=== PATIENT | male | born 1970 | race Caucasian/White ===

== ENCOUNTER 2019-11-14 21:24 | Inpatient (IN) | payer SELFPAY ==
[~2019-11-14] VITALS: Ht 175.3 cm; Wt 82.1 kg
--- NOTE | 2019-11-14 21:54 | NUR ---
PT PLACED IN C COLLAR AND TAKEN TO CT
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
[2019-11-14 22:34] LABS: BASOPHILS # (AUTO) 0.04 x10^3/uL (0-0.1); BASOPHILS % (AUTO) 1 % (0-1); EOSINOPHILS # (AUTO) 0.07 x10^3/uL (0-0.4); EOSINOPHILS % (AUTO) 1 % (1-7); LYMPHOCYTES # (AUTO) 2.04 x10^3/uL (1-3.4); LYMPHOCYTES % (AUTO) 37 % (22-44); MD NO; MEAN CORPUSCULAR HEMOGLOBIN 32.4 pg (27.5-34.5); MEAN CORPUSCULAR HGB CONC 33.6 g/dL (33.2-36.2); MEAN CORPUSCULAR VOLUME 96.3 fL (81-97); MEAN PLATELET VOLUME 7.5 fL (7.4-10.4); MONOCYTES # (AUTO) 0.81 x10^3/uL (0.2-0.8); MONOCYTES % (AUTO) 15 % (2-9); NEUTROPHILS # (AUTO) 2.59 x10^3/uL (1.8-6.8); NEUTROPHILS % (AUTO) 47 % (42-75); PLATELET COUNT 232 x10^3/uL (130-400); RED BLOOD COUNT 4.29 x10^6/uL (4.38-5.82); RED CELL DISTRIBUTION WIDTH 13.6 % (9.4-14.8)
[2019-11-14] MEDS ORDERED: METF500T17 PO (22:36)
[2019-11-14 22:48] LABS: ALBUMIN 2.8 g/dL (3.4-5.0); CALCIUM 8.2 mg/dL (8.5-10.1); CHLORIDE 104 mmol/L (98-107); CREATININE 1.16 mg/dL (0.7-1.3)
[2019-11-14 22:57] LABS: ANION GAP 5 mmol/L (5-15)
[2019-11-14 23:03] LABS: ALANINE AMINOTRANSFERASE 96 U/L (12-78); ALKALINE PHOSPHATASE 71 U/L (45-117); BILIRUBIN,TOTAL 0.3 mg/dL (0.2-1.0); TOTAL PROTEIN 6.9 g/dL (6.4-8.2)
--- NOTE | 2019-11-14 23:56 | NUR ---
pt resting with family at bedside. Vss. Waiting for xrays.
--- NOTE | 2019-11-15 01:13 | NUR ---
Pt to be admitted. report to Minor VELARDE. pt changed into gown.
[2019-11-15] MEDS ORDERED: DIPH,PERTUSS(ACELL),TET VAC/PF 0.5 ML IM-VACC ONE ×2 (01:30→01:52)
--- NOTE | 2019-11-15 01:59 | NUR ---
BREAK RN: FAMILY AT BEDSIDE. PT RESTING WITH EYES CLOSED. REGULAR RESP. CALL LIGHTIN PLACE. WILL CONTINUE TO MONITOR WHILE PRIMARY RN IS ON BREAK.
[2019-11-15] MEDS ORDERED: CEFAZOLIN 1,000 MG IM ONE (02:00)
[2019-11-15] MEDS ORDERED: SODIUM CHLORIDE FLUSH 10ML SYR IVF ONE (02:00)
--- NOTE | 2019-11-15 02:04 | NUR ---
REPORT GIVEN TO PRACHI HOLLINGSWORTH
[2019-11-15] MEDS ORDERED: CEFAZOLIN PMX 1GM/50ML 50 ML IV ONE (03:00)
[2019-11-15] MEDS ORDERED: CEFAZOLIN PMX 1GM/50ML 50 ML ONE (03:44)
--- NOTE | 2019-11-15 03:56 | NUR ---
REPORT OF PT TO PRACHI JACOBSEN. ALL QUESTIONS ANSWERED. PT MEDICATED PER MAR AT THIS TIME.
[2019-11-15 04:00] VITALS: BP 94/56
[2019-11-15] MEDS ORDERED: ONDANSETRON 2MG/ML, 2ML IVPush PRN (05:30)
[2019-11-15] MEDS: CEFAZOLIN PMX 1GM/50ML 50 ML IV SCH ×2 (05:49→14:17)
[2019-11-15] MEDS: POTASSIUM CHLORIDE 20 MEQ, MAGNESIUM SULFATE 2 GM, THIAMINE 200 MG, MVI ADULT 10 ML, FO... IV SCH ×2 (05:49→16:07)
[2019-11-15 06:45] VITALS: BP 106/66
[2019-11-15] MEDS: INSULIN LISPRO 100 UNITS/ML, PEN SQ-INSULIN SCH ×2 (07:00→12:49)
[2019-11-15 07:03] LABS: MICROSCOPIC NOT IND
[2019-11-15 07:16] LABS: AMPHETAMINE SCREEN, URINE Positive (Negative); BARBITURATE SCREEN, URINE Negative (Negative); BENZODIAZEPINE SCREEN, URINE Positive (Negative); CANNABINOID SCREEN, URINE Positive (Negative); COCAINE SCREEN, URINE Negative (Negative); METHADONE SCREEN, URINE Negative (Negative); OPIATE SCREEN, URINE Positive (Negative)
[2019-11-15 12:30] VITALS: BP 117/71
[2019-11-15] MEDS ORDERED: ACETAMINOPHEN 325 MG TABLET PO PRN (13:00)
== END 2019-11-15 16:48 | disposition left against medical advice (07) | DRG 89 ==
LOC: ED 11-15 01:20 → EDIP 11-15 02:51 → 4NE 11-15 04:00
PROVIDERS: ADMIT Student in an Organized Health Care Education/Training Program; ATTEND Internal Medicine
PROC: 0T9B70Z Drainage of Bladder with Drainage Device, Via Natural or Artificial Opening (ICD-10-PCS; principal; 2019-11-15)
DX: S06.0X0A Concussion without loss of consciousness, initial encounter (principal); G93.40 Encephalopathy, unspecified; B19.10 Unspecified viral hepatitis B without hepatic coma; S61.411A Laceration without foreign body of right hand, initial encounter; Y09 Assault by unspecified means; S01.01XA Laceration without foreign body of scalp, initial encounter; F12.90 Cannabis use, unspecified, uncomplicated; S61.431A Puncture wound without foreign body of right hand, initial encounter; Z53.21 Procedure and treatment not carried out due to patient leaving prior to being seen by health care provider; F17.210 Nicotine dependence, cigarettes, uncomplicated; E11.65 Type 2 diabetes mellitus with hyperglycemia; R74.0 Nonspecific elevation of levels of transaminase and lactic acid dehydrogenase [LDH]; Z80.3 Family history of malignant neoplasm of breast; Y93.89 Activity, other specified; Y92.89 Other specified places as the place of occurrence of the external cause; Y99.8 Other external cause status; Z23 Encounter for immunization
CPT/HCPCS: 36415; 72072; 72110; 73130; J7042; 70450; 70486; 72125; 80053; 80307; 81003; 82140; 82550; 82962; 83036; 84443; 85025; 90715; G0378; J0690; J3411; J3475; J3480

== ENCOUNTER 2020-06-20 16:35 | Emergency (ER) | payer SELFPAY ==
[~2020-06-20] VITALS: Ht 175.3 cm; Wt 75.2 kg
[~2020-06-20 16:35] MED LIST: METF500T17 PO
[2020-06-20] MEDS ORDERED: MORPHINE SULFATE 4 MG/ML, 1ML IVPush PRN (17:30)
[2020-06-20] MEDS ORDERED: SODIUM CHLORIDE 0.9% 1,000ML IVBOLUS ONE (17:30)
[2020-06-20] MEDS ORDERED: SODIUM CHLORIDE FLUSH 10ML SYR IVF ONE (17:30)
[2020-06-20] MEDS ORDERED: ONDANSETRON 2MG/ML, 2ML IVPush ONE (17:30)
[2020-06-20 17:33] LABS: BASOPHILS # (AUTO) 0.01 x10^3/uL (0-0.1); BASOPHILS % (AUTO) 0 % (0-1); EOSINOPHILS # (AUTO) 0.05 x10^3/uL (0-0.4); EOSINOPHILS % (AUTO) 1 % (1-7); LYMPHOCYTES % (AUTO) 40 % (22-44); MD NO; MEAN CORPUSCULAR HEMOGLOBIN 31.5 pg (27.5-34.5); MEAN CORPUSCULAR HGB CONC 33.2 g/dL (33.2-36.2); MEAN CORPUSCULAR VOLUME 94.7 fL (81-97); MEAN PLATELET VOLUME 7.6 fL (7.4-10.4); MONOCYTES # (AUTO) 0.71 x10^3/uL (0.2-0.8); MONOCYTES % (AUTO) 13 % (2-9); NEUTROPHILS # (AUTO) 2.47 x10^3/uL (1.8-6.8); NEUTROPHILS % (AUTO) 45 % (42-75); PLATELET COUNT 206 x10^3/uL (130-400); RED BLOOD COUNT 5.25 x10^6/uL (4.38-5.82); RED CELL DISTRIBUTION WIDTH 13.3 % (9.4-14.8)
[2020-06-20] MEDS ORDERED: MORPHINE SULFATE 4 MG/ML, 1ML ONE (17:41)
[2020-06-20] MEDS ORDERED: ONDANSETRON 2MG/ML, 2ML ONE (17:41)
[2020-06-20 17:42] LABS: ALANINE AMINOTRANSFERASE 94 U/L (12-78); ALBUMIN 3.2 g/dL (3.4-5.0); ANION GAP 6 mmol/L (5-15); CALCIUM 8.9 mg/dL (8.5-10.1); CHLORIDE 106 mmol/L (98-107); CREATININE 0.87 mg/dL (0.7-1.3)
[2020-06-20 17:44] LABS: ALKALINE PHOSPHATASE 79 U/L (45-117); BILIRUBIN,TOTAL 0.5 mg/dL (0.2-1.0)
--- NOTE | 2020-06-20 18:00 | NUR ---
PT LAYING ON GURNEY MOSTLY DOZING, RESPONDS APPROP TO STAFF, NAD AT REST & NO DIAPHORESIS NOTED, COMFORT MEASURES PROVIDED, CALL LIGHT WITHIN REACH.
--- NOTE | 2020-06-20 18:10 | NUR ---
HOLD UA COLLECTION AT THIS TIME- PER DEEL JONES.
--- NOTE | 2020-06-20 18:52 | NUR ---
REPORT GIVEN TO CHRISTINE
--- NOTE | 2020-06-20 19:05 | NUR ---
CAITLIN BLAS RECIEVED AND APPLIED TO PT. PT PROVIDED EDUCATION ON REASON FOR ITS USE AND HOW TO PUT IT ON.
[2020-06-20 19:19] VITALS: BP 114/64
== END 2020-06-20 19:21 | disposition home or self-care (01) ==
LOC: ED 18:13
DX: K40.91 Unilateral inguinal hernia, without obstruction or gangrene, recurrent (principal); R10.31 Right lower quadrant pain; E11.9 Type 2 diabetes mellitus without complications; F17.200 Nicotine dependence, unspecified, uncomplicated
CPT/HCPCS: 36415; 80053; 85025; 93005; 96374; 96375; 99284; J2270; J2405; J7030

== ENCOUNTER 2020-06-24 21:23 | Emergency (ER) | payer MEDICAID, OTHER ==
[~2020-06-24] VITALS: Ht 175.3 cm; Wt 74.8 kg
[2020-06-25] MEDS ORDERED: ONDANSETRON 2MG/ML, 2ML ONE (00:09)
[2020-06-25] MEDS ORDERED: HYDROmorphone 1 MG/ML, 1ML INJ ONE (00:09)
[2020-06-25] MEDS ORDERED: SODIUM CHLORIDE FLUSH 10ML SYR IVF ONE (00:30)
[2020-06-25] MEDS ORDERED: ONDANSETRON 2MG/ML, 2ML IVPush ONE (00:30)
[2020-06-25] MEDS ORDERED: HYDROmorphone 2 MG/ML, 1ML IVPush PRN (00:30)
--- NOTE | 2020-06-25 00:48 | NUR ---
LATE ENTRY DUE TO PATIENT CARE: THIS IS A 49 YO MALE COMING IN FOR "MY HERNIA POPPED OUT AGAIN". PATIENT DIAGNOSED WITH INGUINAL HERNIA A FEW WEEKS AGO, HAS NOT HAD SURGICAL CONSULT. IT "POPPED" BACK OUT TODAY, NOTICABLE BULGE NOTED TO RIGHT INGUINAL AREA. A&OX4, MODERATE DISTRESS NOTED, PATIENT APPEARS VERY UNCOMFORTABLE. MONITORING IN PLACE, VSS, PIV PLACED IN RIGHT HAND. MEDICATED PER EMAR. TOLERATED WELL.
[2020-06-25 00:56] LABS: ALBUMIN 3.3 g/dL (3.4-5.0); ANION GAP 7 mmol/L (5-15); CALCIUM 9.2 mg/dL (8.5-10.1); CHLORIDE 102 mmol/L (98-107); CREATININE 1.03 mg/dL (0.7-1.3)
--- NOTE | 2020-06-25 01:03 | NUR ---
PATIENT SEEN HERE May FOR INITIAL HERNIA DX, DISCHARGED WITH ABD BINDER.
[2020-06-25 01:47] VITALS: BP 133/80
[2020-06-25 01:59] LABS: BASOPHILS # (AUTO) 0.02 x10^3/uL (0-0.1); BASOPHILS % (AUTO) 0 % (0-1); EOSINOPHILS # (AUTO) 0.04 x10^3/uL (0-0.4); EOSINOPHILS % (AUTO) 1 % (1-7); LYMPHOCYTES # (AUTO) 2.55 x10^3/uL (1-3.4); LYMPHOCYTES % (AUTO) 37 % (22-44); MD NO; MEAN CORPUSCULAR HEMOGLOBIN 31.5 pg (27.5-34.5); MEAN CORPUSCULAR HGB CONC 33.4 g/dL (33.2-36.2); MEAN PLATELET VOLUME 7.6 fL (7.4-10.4); MONOCYTES # (AUTO) 0.65 x10^3/uL (0.2-0.8); MONOCYTES % (AUTO) 9 % (2-9); NEUTROPHILS # (AUTO) 3.69 x10^3/uL (1.8-6.8); NEUTROPHILS % (AUTO) 53 % (42-75); PLATELET COUNT 255 x10^3/uL (130-400); RED BLOOD COUNT 5.01 x10^6/uL (4.38-5.82); RED CELL DISTRIBUTION WIDTH 13.1 % (9.4-14.8)
--- NOTE | 2020-06-25 02:10 | NUR ---
SPOKE WITH DR. VASQUEZ ABOUT LAB REDRAW, DR. VASQUEZ STATES PATIENT IS SAFE TO BE DISCHARGED IF PAIN IS UNDER CONTROL AND FEELS SAFE TO DO SO. PATIENT STATES RELIEF FROM PAIN AND WOULD LIKE TO GO HOME. UNDERSTANDS NEED FOR FOLLOW UP CARE AND TREATMENT
--- NOTE | 2020-06-25 02:27 | NUR ---
Patient given discharge instructions and they have confirmed that they understand the instructions. Patient ambulatory with steady gait.
== END 2020-06-25 02:30 | disposition home or self-care (01) ==
LOC: ED 21:53
DX: K40.90 Unilateral inguinal hernia, without obstruction or gangrene, not specified as recurrent (principal); E11.9 Type 2 diabetes mellitus without complications
CPT/HCPCS: 36415; 80048; 82040; 83605; 85025; 96374; 96375; 99284; J1170; J2405

== ENCOUNTER 2021-02-16 21:13 | Inpatient (IN) | payer MEDICAID ==
[~2021-02-16] VITALS: Ht 175.3 cm; Wt 85.3 kg
--- NOTE | 2021-02-16 21:38 | NUR ---
CC OF SOB AND CP FOR 3 DAYS, + COUGH BROWN SPUTUM. STATES HE HAS BEEN SICK FOR 6-7 DAYS. + NAUSEA. DENIES BEING AROUND ANYONE SICK AND DENIES RECENT TRAVEL. PT ON 90-92% RA, PLACED ON 2 L NC FOR COMFORT. SISTER AT BEDSIDE
[2021-02-16] MEDS ORDERED: ONDANSETRON 2MG/ML, 2ML ONE (21:58)
[2021-02-16] MEDS ORDERED: ACETAMINOPHEN 500 MG TABLET ONE (21:58)
[2021-02-16] MEDS ORDERED: KETOROLAC 30 MG/1 ML ONE (21:58)
[2021-02-16] MEDS ORDERED: ACETAMINOPHEN 500 MG TABLET PO ONE (22:00)
[2021-02-16] MEDS ORDERED: SODIUM CHLORIDE 0.9% 1,000ML IVBOLUS ONE (22:00)
[2021-02-16] MEDS ORDERED: KETOROLAC 30 MG/1 ML IVPush ONE (22:00)
[2021-02-16] MEDS ORDERED: ONDANSETRON 2MG/ML, 2ML IVPush ONE (22:00)
[2021-02-16] MEDS ORDERED: SODIUM CHLORIDE FLUSH 10ML SYR IVF ONE (22:00)
--- NOTE | 2021-02-16 22:11 | NUR ---
PT HARD STICK, MULTIPLE ATTEMPTS AT PLACING AN IV AND LAB DRAWS.
[2021-02-16 22:12] LABS: MEAN CORPUSCULAR HEMOGLOBIN 32.2 pg (27.5-34.5); MEAN CORPUSCULAR HGB CONC 33.6 g/dL (33.2-36.2); MEAN PLATELET VOLUME 7.6 fL (7.4-10.4); PLATELET COUNT 254 x10^3/uL (130-400); RED BLOOD COUNT 4.29 x10^6/uL (4.38-5.82); RED CELL DISTRIBUTION WIDTH 13.5 % (9.4-14.8)
[2021-02-16 22:13] LABS: MD YES
[2021-02-16 22:23] LABS: ALANINE AMINOTRANSFERASE 97 U/L (12-78); ALBUMIN 2.2 g/dL (3.4-5.0); ANION GAP 8 mmol/L (5-15); CALCIUM 7.6 mg/dL (8.5-10.1); CHLORIDE 99 mmol/L (98-107); CREATININE 1.03 mg/dL (0.7-1.3)
[2021-02-16 22:27] LABS: ALKALINE PHOSPHATASE 117 U/L (45-117); BILIRUBIN,TOTAL 0.7 mg/dL (0.2-1.0); TOTAL PROTEIN 6.8 g/dL (6.4-8.2); TROPONIN I 0.022 ng/mL (0.000-0.045)
[2021-02-16] MEDS ORDERED: AZITHROMYCIN 500 MG in SODIUM CHLORIDE 0.9% 250 ML IV ONE (22:30)
[2021-02-16] MEDS ORDERED: CEFTRIAXONE 1,000 MG in DEXTROSE 5% 50 ML IVPB ONE (22:30)
[2021-02-16 22:54] LABS: <RBC MORPHOLOGY> NORMAL; BAND#(MANUAL) 1.97 x10^3/uL; BANDS%(MANUAL) 9 % (0-7); LYMPH#(MANUAL) 0.88 x10^3/uL (1-3.4); LYMPHS% (MANUAL) 4 % (22-44); MONOS#(MANUAL) 1.31 x10^3/uL (0.3-2.7); MONOS% (MANUAL) 6 % (2-9); SEG#(MANUAL) 17.74 x10^3/uL (1.8-6.8); SEGS% (MANUAL) 81 % (42-75)
[2021-02-16 22:55] LABS: <PLATELET ESTIMATE> ADEQUATE; <PLT MORPHOLOGY> NORMAL PLT MORPH
[2021-02-16] MEDS ORDERED: VANCOMYCIN 1,900 MG in SODIUM CHLORIDE 0.9% 250 ML IV ONE (22:57)
[2021-02-16] MEDS ORDERED: VANCOMYCIN PER PHARMACY MC PRN (23:00)
[2021-02-16] MEDS: SODIUM CHLORIDE 0.9% 1,000ML IVBOLUS ONE (23:00)
[2021-02-16] MEDS ORDERED: LIDOCAINE-MPF 1%, 5ML ONE (23:01)
--- NOTE | 2021-02-16 23:26 | NUR ---
TASK RN: CENTRAL LINE PLACED BY DR ABBOTT DUE TO INABILITY TO PLACE PERIPHERAL LINE AND PT IN NEED OF FLUIDS AND ANTIBIOTICS.
--- NOTE | 2021-02-16 23:58 | NUR ---
TATI SISTER [phone]
[2021-02-17] MEDS ORDERED: VANCOMYCIN PER PHARMACY MC PRN
[2021-02-17] MEDS ORDERED: PHARMACY MAY ADJ FOR RENAL FX MC PRN
[2021-02-17] MEDS ORDERED: morphine SULFATE 10 MG/ML, 1ML IVPush PRN
[2021-02-17] MEDS ORDERED: CEFTRIAXONE 1,000 MG in DEXTROSE 5% 50 ML IVPB SCH
[2021-02-17] MEDS ORDERED: LIDODERM 5% PATCH TD PRN
[2021-02-17] MEDS ORDERED: DOCUSATE 100 MG CAPSULE PO PRN
[2021-02-17] MEDS: SODIUM CHLORIDE 0.9% 1,000ML IVBOLUS ONE (00:07)
--- NOTE | 2021-02-17 00:08 | NUR ---
CT CALLED FOR CTA NOW THAT CENTRAL LINE IS PLACED AND VERIFIED BY DR. ABBOTT. CT STATED THEY WILL BE DOWN TO GET PT IN ABOUT 15 MIN.
--- NOTE | 2021-02-17 00:25 | NUR ---
PT TO CT
[2021-02-17] MEDS ORDERED: SODIUM CHLORIDE 0.9% 250 ML IV SCH (00:30)
[2021-02-17] MEDS ORDERED: CEFTRIAXONE 1,000 MG in DEXTROSE 5% 50 ML IVPB ONE (00:30)
[2021-02-17] MEDS ORDERED: OMNIPAQUE 350 MG/ML, 75ML BOTTLE ONE (00:42)
--- NOTE | 2021-02-17 00:44 | NUR ---
REPORT GIVEN TO ROSETTE VELARDE
--- NOTE | 2021-02-17 00:47 | NUR ---
PT AWAKE AND ALERT, REQUESTING TO STAND AND URINATE. PT HELPED TO STANDING POSITION, STEADY ON FEET.
--- NOTE | 2021-02-17 00:58 | NUR ---
UA COLLECTED AND SENT TO LAB
[2021-02-17 01:18] LABS: MICROSCOPIC INDICATED
[2021-02-17 01:45] VITALS: BP 108/67
[2021-02-17] MEDS ORDERED: PHARMACOKINETIC CONSULTATION MC ONE (02:00)
[2021-02-17] MEDS ORDERED: PHARMACOKINETIC MONITORING MC PRN (02:00)
[2021-02-17 02:11] LABS: AMPHETAMINE SCREEN, URINE Positive (Negative); BARBITURATE SCREEN, URINE Negative (Negative); BENZODIAZEPINE SCREEN, URINE Positive (Negative); CANNABINOID SCREEN, URINE Positive (Negative); COCAINE SCREEN, URINE Negative (Negative); METHADONE SCREEN, URINE Negative (Negative); OPIATE SCREEN, URINE Negative (Negative)
[2021-02-17] MEDS: ENOXAPARIN 40 MG/0.4 ML SQ SCH (03:05)
[2021-02-17] MEDS ORDERED: ALBUTEROL/IPRATROPIUM 2.5MG/0.5MG, 3 ML NPPB PRN (03:30)
[2021-02-17] MEDS: MELATONIN 5 MG TABLET PO PRN (04:50)
[2021-02-17 05:25] LABS: RAPID INFLUENZA A Negative (Negative); RAPID INFLUENZA B Negative (Negative)
[2021-02-17 05:49] LABS: BASOPHILS % (AUTO) 0 % (0-1); EOSINOPHILS % (AUTO) 0 % (1-7); LYMPHOCYTES % (AUTO) 7 % (22-44); MEAN CORPUSCULAR HEMOGLOBIN 32.5 pg (27.5-34.5); MEAN CORPUSCULAR HGB CONC 33.8 g/dL (33.2-36.2); MEAN PLATELET VOLUME 7.7 fL (7.4-10.4); MONOCYTES % (AUTO) 10 % (2-9); NEUTROPHILS % (AUTO) 83 % (42-75); PLATELET COUNT 246 x10^3/uL (130-400); RED BLOOD COUNT 4.28 x10^6/uL (4.38-5.82); RED CELL DISTRIBUTION WIDTH 13.7 % (9.4-14.8)
[2021-02-17 05:57] LABS: ALANINE AMINOTRANSFERASE 82 U/L (12-78); ALBUMIN 1.8 g/dL (3.4-5.0); ANION GAP 6 mmol/L (5-15); CALCIUM 7.2 mg/dL (8.5-10.1); CHLORIDE 103 mmol/L (98-107); CREATININE 0.92 mg/dL (0.7-1.3)
[2021-02-17 06:11] LABS: ALKALINE PHOSPHATASE 107 U/L (45-117); BILIRUBIN,TOTAL 0.5 mg/dL (0.2-1.0); CREATINE KINASE, TOTAL 1617 U/L (39-308); TROPONIN I 0.016 ng/mL (0.000-0.045)
[2021-02-17 06:19] LABS: MD SCAN
[2021-02-17] MEDS: INSULIN LISPRO 100 UNITS/ML, PEN SQ-INSULIN SCH ×4 (07:00→20:20)
[2021-02-17 07:41] VITALS: BP 114/69
[2021-02-17] MEDS: SODIUM CHLORIDE 0.9% 1,000 ML IV SCH ×3 (09:57→20:07)
[2021-02-17 10:03] LABS: D-DIMER 2.19 ug/mlFEU (0.00-0.52); INTERNATIONAL NORMALIZED RATIO 1.27 (0.93-1.1); PARTIAL THROMBOPLASTIN TIME 32 Seconds (25-31); PROTHROMBIN TIME 13.5 Seconds (9.6-11.5)
[2021-02-17 10:27] LABS: FIBRINOGEN > 713 mg/dL (200-340)
[2021-02-17] MEDS ORDERED: OXYcodone IR 5MG TABLET PO PRN (12:00)
[2021-02-17] MEDS: VANCOMYCIN 1,400 MG in SODIUM CHLORIDE 0.9% 250 ML IV SCH (12:47)
[2021-02-17] MEDS: DOXYCYCLINE 100MG TABLET PO SCH ×2 (12:48→20:06)
[2021-02-17] MEDS: IBUPROFEN 600 MG TABLET PO PRN (12:48)
[2021-02-17 13:05] VITALS: BP 123/72
[2021-02-17 20:00] VITALS: BP 100/63
[2021-02-17] MEDS: CEFTRIAXONE 2 GM in DEXTROSE 5% 50 ML IVPB SCH (22:34)
[2021-02-18] MEDS: VANCOMYCIN 1,400 MG in SODIUM CHLORIDE 0.9% 250 ML IV SCH (00:29)
[2021-02-18] MEDS: ENOXAPARIN 40 MG/0.4 ML SQ SCH (00:29)
[2021-02-18 00:36] VITALS: BP 109/63
[2021-02-18] MEDS: IBUPROFEN 600 MG TABLET PO PRN (02:50)
[2021-02-18] MEDS: MELATONIN 5 MG TABLET PO PRN (02:55)
[2021-02-18 05:50] LABS: HCT (SEDRATE) 38.7 % (39.2-51.8)
[2021-02-18 05:52] LABS: BASOPHILS % (AUTO) 0 % (0-1); EOSINOPHILS % (AUTO) 0 % (1-7); LYMPHOCYTES % (AUTO) 13 % (22-44); MD NO; MEAN CORPUSCULAR HEMOGLOBIN 32.6 pg (27.5-34.5); MEAN CORPUSCULAR HGB CONC 34.2 g/dL (33.2-36.2); MEAN PLATELET VOLUME 7.7 fL (7.4-10.4); MONOCYTES % (AUTO) 9 % (2-9); NEUTROPHILS % (AUTO) 77 % (42-75); PLATELET COUNT 296 x10^3/uL (130-400); RED BLOOD COUNT 4.05 x10^6/uL (4.38-5.82); RED CELL DISTRIBUTION WIDTH 13.3 % (9.4-14.8)
[2021-02-18 06:02] LABS: ALANINE AMINOTRANSFERASE 72 U/L (12-78); ALBUMIN 1.8 g/dL (3.4-5.0); ANION GAP 6 mmol/L (5-15); CALCIUM 7.2 mg/dL (8.5-10.1); CHLORIDE 107 mmol/L (98-107)
[2021-02-18 06:11] LABS: ALKALINE PHOSPHATASE 90 U/L (45-117); BILIRUBIN,TOTAL 0.3 mg/dL (0.2-1.0); CREATINE KINASE, TOTAL 487 U/L (39-308); CREATININE 0.69 mg/dL (0.7-1.3); TOTAL PROTEIN 5.8 g/dL (6.4-8.2); VANCOMYCIN,TROUGH 17.3 mcg/mL (5.0-10.0)
[2021-02-18 06:34] VITALS: BP 116/74
[2021-02-18] MEDS ORDERED: VANCOMYCIN 1,600 MG in SODIUM CHLORIDE 0.9% 250 ML IV SCH (07:00)
[2021-02-18] MEDS: INSULIN LISPRO 100 UNITS/ML, PEN SQ-INSULIN SCH ×4 (08:20→22:36)
[2021-02-18] MEDS: DOXYCYCLINE 100MG TABLET PO SCH (08:20)
[2021-02-18 13:09] VITALS: BP 109/68
[2021-02-18] MEDS ORDERED: POTASSIUM PHOSPHATE 22 MEQ in SODIUM CHLORIDE 0.9% 500 ML IV ONE (14:00)
[2021-02-18] MEDS: SODIUM CHLORIDE 0.9% 1,000 ML IV SCH (15:04)
[2021-02-18 21:04] VITALS: BP 104/72
[2021-02-18] MEDS: CEFTRIAXONE 2 GM in DEXTROSE 5% 50 ML IVPB SCH (22:37)
[2021-02-19 00:44] VITALS: BP 113/68
[2021-02-19] MEDS: ENOXAPARIN 40 MG/0.4 ML SQ SCH (00:44)
[2021-02-19 06:08] LABS: BASOPHILS % (AUTO) 1 % (0-1); EOSINOPHILS % (AUTO) 1 % (1-7); LYMPHOCYTES % (AUTO) 25 % (22-44); MEAN CORPUSCULAR HEMOGLOBIN 32.5 pg (27.5-34.5); MEAN CORPUSCULAR HGB CONC 34.3 g/dL (33.2-36.2); MEAN PLATELET VOLUME 7.7 fL (7.4-10.4); MONOCYTES % (AUTO) 11 % (2-9); NEUTROPHILS % (AUTO) 63 % (42-75); PLATELET COUNT 318 x10^3/uL (130-400); RED BLOOD COUNT 4.01 x10^6/uL (4.38-5.82); RED CELL DISTRIBUTION WIDTH 13.9 % (9.4-14.8)
[2021-02-19 06:12] LABS: ANION GAP 6 mmol/L (5-15); CALCIUM 7.5 mg/dL (8.5-10.1); CHLORIDE 107 mmol/L (98-107)
[2021-02-19 06:15] LABS: CREATININE 0.78 mg/dL (0.7-1.3)
[2021-02-19 06:43] LABS: MD SCAN
[2021-02-19] MEDS: INSULIN LISPRO 100 UNITS/ML, PEN SQ-INSULIN SCH ×4 (07:00→22:04)
[2021-02-19 07:39] VITALS: BP 126/74
[2021-02-19] MEDS: SODIUM CHLORIDE 0.9% 1,000 ML IV SCH ×3 (11:05→22:01)
[2021-02-19 13:42] VITALS: BP 132/74
[2021-02-19 18:34] VITALS: BP 133/71
[2021-02-19] MEDS: MELATONIN 5 MG TABLET PO PRN (22:00)
[2021-02-19] MEDS: CEFTRIAXONE 2 GM in DEXTROSE 5% 50 ML IVPB SCH (22:01)
[2021-02-20] MEDS: ENOXAPARIN 40 MG/0.4 ML SQ SCH (00:38)
[2021-02-20 00:56] VITALS: BP 118/71
[2021-02-20] MEDS: SODIUM CHLORIDE 0.9% 1,000 ML IV SCH ×3 (05:43→18:27)
[2021-02-20] MEDS: INSULIN LISPRO 100 UNITS/ML, PEN SQ-INSULIN SCH ×4 (07:00→21:00)
[2021-02-20 08:00] VITALS: BP 125/71
[2021-02-20 12:01] VITALS: BP 124/72
[2021-02-20 18:58] VITALS: BP 134/82
[2021-02-20] MEDS: CEFTRIAXONE 2 GM in DEXTROSE 5% 50 ML IVPB SCH (22:27)
[2021-02-20] MEDS: MELATONIN 5 MG TABLET PO PRN (22:28)
[2021-02-21] MEDS: ENOXAPARIN 40 MG/0.4 ML SQ SCH (00:23)
[2021-02-21 00:36] VITALS: BP 130/79
[2021-02-21] MEDS: SODIUM CHLORIDE 0.9% 1,000 ML IV SCH ×2 (02:47→08:05)
[2021-02-21 05:58] LABS: BASOPHILS % (AUTO) 1 % (0-1); EOSINOPHILS % (AUTO) 3 % (1-7); LYMPHOCYTES % (AUTO) 29 % (22-44); MEAN CORPUSCULAR HEMOGLOBIN 32.5 pg (27.5-34.5); MEAN CORPUSCULAR HGB CONC 33.9 g/dL (33.2-36.2); MEAN PLATELET VOLUME 7.6 fL (7.4-10.4); MONOCYTES % (AUTO) 13 % (2-9); NEUTROPHILS % (AUTO) 54 % (42-75); PLATELET COUNT 392 x10^3/uL (130-400); RED CELL DISTRIBUTION WIDTH 13.4 % (9.4-14.8)
[2021-02-21 06:09] LABS: CHLORIDE 104 mmol/L (98-107)
[2021-02-21 06:30] LABS: ANION GAP 6 mmol/L (5-15); CREATININE 0.84 mg/dL (0.7-1.3)
[2021-02-21 06:40] LABS: MD SCAN
[2021-02-21 07:21] VITALS: BP 122/73
[2021-02-21] MEDS: INSULIN LISPRO 100 UNITS/ML, PEN SQ-INSULIN SCH ×3 (08:05→16:00)
[2021-02-21 12:35] VITALS: BP 119/74
[2021-02-21] MEDS ORDERED: METHOCARBAMOL 750 MG TABLET PO PRN (19:30)
[2021-02-21 19:31] VITALS: BP 143/68
[2021-02-21] MEDS: CEFTRIAXONE 2 GM in DEXTROSE 5% 50 ML IVPB SCH (22:57)
[2021-02-22] MEDS: ENOXAPARIN 40 MG/0.4 ML SQ SCH (00:29)
[2021-02-22 01:33] VITALS: BP 126/72
== END 2021-02-22 04:54 | disposition home or self-care (01) | DRG 871 ==
LOC: ED 21:43 → EDIP 02-17 00:18 → 4EST 02-17 01:24
PROVIDERS: ADMIT Family Medicine; ATTEND Internal Medicine
PROC: 02HV33Z Insertion of Infusion Device into Superior Vena Cava, Percutaneous Approach (ICD-10-PCS; principal; 2021-02-18)
DX: A41.9 Sepsis, unspecified organism (principal); J18.9 Pneumonia, unspecified organism; E43 Unspecified severe protein-calorie malnutrition; B18.1 Chronic viral hepatitis B without delta-agent; E22.2 Syndrome of inappropriate secretion of antidiuretic hormone; M62.82 Rhabdomyolysis; Z20.822 Contact with and (suspected) exposure to COVID-19; Z21 Asymptomatic human immunodeficiency virus [HIV] infection status; A52.8 Late syphilis, latent; B95.3 Streptococcus pneumoniae as the cause of diseases classified elsewhere; E11.9 Type 2 diabetes mellitus without complications; F10.10 Alcohol abuse, uncomplicated; F14.10 Cocaine abuse, uncomplicated; Z80.3 Family history of malignant neoplasm of breast
CPT/HCPCS: 36415; 36556; 71045; 71275; 76700; 80048; 80053; 80074; 80202; 80307; 81001; 82550; 82728; 82962; 83036; 83605; 83615; 83735; 84100; 84145; 84484; 85025; 85379; 85384; 85610; 85651; 85730; 86140; 86361; 86592; 86701; 86702; 86780; 87040; 87077; 87181; 87400; 87491; 87517; 87535; 87536; 87591; 87806; 93005; 93306; 93356; 99291; G0378; J0456; J0696; J1650; J1885; J2405; J3370; Q9967; U0005; G0475; J1815; J7030; J7040; J7050; U0003

== ENCOUNTER 2021-02-22 12:01 | Emergency (ER) | payer MEDICAID ==
[~2021-02-22] VITALS: Ht 175.3 cm; Wt 81.3 kg
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
--- NOTE | 2021-02-22 12:22 | NUR ---
ROBERT REDDY AT BS FOR CENTRAL LINE REMOVAL.
--- NOTE | 2021-02-22 12:25 | NUR ---
BULKY DRESSING APPLIED. PT INSTRUCTED TO APPLY ADDITIONAL PRESSURE; UNDERSTANDING VERBALIZED
[2021-02-22 12:57] LABS: BASOPHILS % (AUTO) 0 % (0-1); EOSINOPHILS % (AUTO) 1 % (1-7); LYMPHOCYTES % (AUTO) 31 % (22-44); MEAN CORPUSCULAR HEMOGLOBIN 32.5 pg (27.5-34.5); MEAN CORPUSCULAR HGB CONC 34.3 g/dL (33.2-36.2); MEAN PLATELET VOLUME 7.7 fL (7.4-10.4); MONOCYTES % (AUTO) 14 % (2-9); NEUTROPHILS % (AUTO) 54 % (42-75); PLATELET COUNT 446 x10^3/uL (130-400); RED BLOOD COUNT 4.32 x10^6/uL (4.38-5.82); RED CELL DISTRIBUTION WIDTH 13.5 % (9.4-14.8)
[2021-02-22 13:08] LABS: MD NO
[2021-02-22 13:10] LABS: ANION GAP 6 mmol/L (5-15); CALCIUM 8.4 mg/dL (8.5-10.1); CHLORIDE 104 mmol/L (98-107)
--- NOTE | 2021-02-22 13:21 | NUR ---
LATE ENTRY FROM TRIAGE: PT'S CELL PHONE, RESIDENTIAL SPECIALIST, EARBUDS IN TELE2 CHARGE OFFICE. CURRENT: PT STATES HE HAS THE ABOVE BELONGINGS.
--- NOTE | 2021-02-22 14:00 | NUR ---
PT SITTING ON END OF GURNEY, FULLY DRESSED, AWAITING DC. NECK DRESSING CLEAN & DRY. WRITTEN DC INSTRUCTIONS DISCUSSED W/ PT; UNDERSTANDING VERBALIZED. PT DC'D W/ ALL BELONGINGS.
[2021-02-22 14:08] VITALS: BP 116/68
== END 2021-02-22 14:12 | disposition home or self-care (01) ==
LOC: ED 12:41
DX: J18.9 Pneumonia, unspecified organism (principal); Z72.9 Problem related to lifestyle, unspecified; F17.210 Nicotine dependence, cigarettes, uncomplicated; F15.10 Other stimulant abuse, uncomplicated; E11.65 Type 2 diabetes mellitus with hyperglycemia; Z21 Asymptomatic human immunodeficiency virus [HIV] infection status
CPT/HCPCS: 36415; 71046; 80048; 85025; 99284; 99406